=== PATIENT | male | born 1950 | race Caucasian/White ===

== ENCOUNTER 2017-04-18 14:08 | Day surgery (SDC) | payer MEDICARE, BC ==
[2017-04-13 11:46] VITALS: BMI 19.3
[~2017-04-18 14:08] MED LIST: LACTATED RINGERS 1,000 ML IV SCH
[2017-04-18 14:23] VITALS: TEMP 98.5
[2017-04-18] MEDS ORDERED: LIDOCAINE 1% 20 ML VIAL (10MG/ML) FOR IV START INTRADERMA ONE (14:25)
[2017-04-18] MEDS ORDERED: LIDOCAINE 1% INJ 10MG/ML (20 ML MDV) ONE (15:59)
[2017-04-18] MEDS ORDERED: PROPOFOL 10 MG/ML 20 ML VIAL IV ONE (15:59)
--- NOTE | 2017-04-18 16:01 | P.GSHP ---
History of Present Illness H&P Date: 04/18/17 Chief Complaint: Screening colonoscopy This is a 67-year-old male referred from Dr. Roth. Patient presents today for screening colonoscopy. He denies a significant GI complaints. Past Medical History Past Medical History: COPD, Memory Impairment, Osteoarthritis (OA) Additional Past Medical History / Comment(s): Crohn's disease History of Any Multi-Drug Resistant Organisms: None Reported Past Surgical History: Joint Replacement, Orthopedic Surgery, Tonsillectomy Additional Past Surgical History / Comment(s): RT HANDY X 3, RT SHOULDER X 3, LT SHOULDER X 1, COLONOSCOPY Past Anesthesia/Blood Transfusion Reactions: No Reported Reaction Smoking Status: Current every day smoker - Past Family History Mother Family Medical History: No Reported History Medications and Allergies Home Medications Medication Instructions Recorded Confirmed Type Escitalopram [Lexapro] 10 mg PO HS 12/31/14 04/13/17 History ARIPiprazole [Abilify] 5 mg PO HS 04/13/17 04/13/17 History Mesalamine [Asacol Hd] 800 mg PO BID 04/13/17 04/13/17 History Allergies Allergy/AdvReac Type Severity Reaction Status Date / Time Sulfa (Sulfonamide Allergy Rash/Hives Verified 04/13/17 11:41 Antibiotics) morphine AdvReac Nausea & Verified 04/13/17 11:41 Vomiting Surgical - Exam Vital Signs Temp Pulse Resp BP Pulse Ox 98.5 F 101 H 16 152/86 99 04/18/17 14:15 04/18/17 14:15 04/18/17 14:15 04/18/17 14:15 04/18/17 14:15 - General well developed, no distress - Eyes PERRL - ENT normal pinna - Neck no masses - Respiratory normal expansion - Cardiovascular Rhythm: regular - Abdomen Abdomen: soft, non tender Assessment and Plan Plan: We'll perform screening colonoscopy.
--- NOTE | 2017-04-18 16:12 | P.OP ---
Date of Procedure: 04/18/17 Preoperative Diagnosis: Screening colonoscopy Postoperative Diagnosis: Severe diverticulosis of sigmoid and left colon Procedure(s) Performed: Colonoscopy Implants: Anesthesia: MAC Surgeon: Bao Mendez Pathology: none sent Condition: stable Disposition: PACU Indications for Procedure: Operative Findings: Description of Procedure: The patient's placed on the endoscopy table in the lateral position. He received IV sedation. Digital rectal exam was performed which revealed no abnormalities. The flexible colonoscope was then placed patient anus and passed throughout the entire colon. The ileocecal valve was visualized. The cecum, ascending and transverse colon appeared normal. In the descending and sigmoid colon there was severe diverticulosis. Scope was then brought back the rectum and this appeared normal.. The scope was then Withdrawn for patient.
[2017-04-18 17:16] VITALS: BP 133/76; PULSE 66; RESP 18
== END 2017-04-18 17:13 | disposition home or self-care (01) ==
LOC: ORWHC2ENDO 14:08
PROVIDERS: ATTEND Surgery
DX: Z12.11 Encounter for screening for malignant neoplasm of colon (principal); K57.30 Diverticulosis of large intestine without perforation or abscess without bleeding; J44.9 Chronic obstructive pulmonary disease, unspecified; F17.200 Nicotine dependence, unspecified, uncomplicated; F32.9 Major depressive disorder, single episode, unspecified; K50.90 Crohn's disease, unspecified, without complications; Z79.899 Other long term (current) drug therapy; Z88.5 Allergy status to narcotic agent; Z88.2 Allergy status to sulfonamides
CPT/HCPCS: J2001; J2704; G0105; 45378

== ENCOUNTER → 2019-03-08 | Outpatient (CLI) | payer MEDICARE | END | disposition home or self-care (01) | LOC: RADPETMAIN 10:45 | PROVIDERS: ATTEND Internal Medicine Hematology & Oncology | DX: Z53.9 Procedure and treatment not carried out, unspecified reason (principal) ==

== ENCOUNTER → 2019-03-14 | Outpatient (CLI) | payer MEDICARE ==
--- NOTE | 2019-03-15 15:38 | PE ---
EXAMINATION TYPE: PET CT fusion skull to thigh DATE OF EXAM: 03/14/2019 COMPARISON: CT abdomen and pelvis October 22, 2014 HISTORY: Multiple sites , mantle cell lymphoma . Elevated labs. On chemotherapy last treatment March 12. TECHNIQUE: Following the intravenous administration of 11.93 mCi of F-18 FDG, whole body images are performed from the skull base to the midthigh. Images are reviewed on the computer in the coronal, a xial, and sagittal planes. Reconstructed rotating images are created on independent workstation and reviewed on the computer. A noncontrast CT is performed in conjunction with the PET scan. SCAN: Initial Scan FINDINGS: SKULL BASE AND NECK: Mild symmetric uptake in level of vocal cord segment axial image 53 is presumed product of phonation. No suspicious hypermetabolic uptake or adenopathy is present CHEST, MEDIASTINUM, AND HILAR REGION: No suspicious hypermetabolic uptake. ABDOMEN AND PELVIS: Normal uptake in bowel and bladder. Persistent hypermetabolic uptake. Liver and s pleen are normal in size. OSSEOUS STRUCTURES: No suspicious hypermetabolic uptake OTHER CT: Mild to moderate calcified plaque centered at bilateral carotid bulb level. Mild underlying emphysematous change. Moderate to severe three-vessel coronary artery calcification w hich is noted marker for underlying coronary artery disease. Patient has very little intra-abdominal fat. Scattered pelvic phleboliths. Fluid-filled slightly prom inent small and large bowel loops, nonspecific finding. [id number] calcified plaque of aorta ex tending into branch vessels. Straightening of spine with facet arthropathy lower lumbar levels. Multilevel spurring and disc space narrowing mid to lower lumbar spine. Metallic hardware from right hip arthroplasty causes streak art ifact in the pelvis. IMPRESSION: No areas of suspicious hypermetabolic uptake identified.
== END ==
LOC: RADPETMAIN 15:39
PROVIDERS: ATTEND Internal Medicine Hematology & Oncology
DX: C83.18 Mantle cell lymphoma, lymph nodes of multiple sites (principal)
CPT/HCPCS: 78815; A9552

== ENCOUNTER → 2020-09-01 | Outpatient (CLI) | payer MEDICARE ==
[~2020-09-01] MED LIST changes: +IODINE/POTASS IOD (LUGOLS) BOTTLE TOPICAL ONE; -LACTATED RINGERS 1,000 ML IV SCH
--- NOTE | 2020-09-02 11:02 | NM ---
EXAMINATION TYPE: NM DatScan Brain SPECT DATE OF EXAM: 09/01/2020 COMPARISON: NONE HISTORY: Tremors TECHNIQUE: 10 drops of Lugol's solution was administered 1 hour prior to injection as a thyroid bloc rosio agent. After the administration of 4.5 mCi I-123 Ioflupane DaTscan. Images obtained [address] injection. SPECT images of the brain were acquired with axial and coronal reconstructions. FINDINGS: The axial SPECT images demonstrate normal background activity. Accounting for head tilt, t here appears to be slight asymmetrically blunted comma-shaped appearance of the right corpus striatum . IMPRESSION: Slightly blunted striatal activity on the left may indicate early changes of idiopathic P arkinson's disease or Parkinsonian syndrome.
== END | disposition home or self-care (01) ==
LOC: RADNMMAIN 11:00
PROVIDERS: ATTEND Psychiatry & Neurology Neurology
DX: R90.89 Other abnormal findings on diagnostic imaging of central nervous system (principal); G25.0 Essential tremor
CPT/HCPCS: 78803; A9584